=== PATIENT | male | born 1980 | race Caucasian/White ===

== ENCOUNTER 2024-09-07 11:58 | Emergency (ER) | payer BC, SELFPAY ==
[2024-09-07 12:01] VITALS: BP 168/105
[2024-09-07 12:32] LABS: Hematocrit 47.2 % (39.0-52.0); Hemoglobin 16.3 g/dL (13.0-18.0); Mean Corp Hgb Conc. 34.5 g/dL (33.0-37.0); Mean Corpuscular Volume 84.3 fL (80.0-94.0); Nucleated Red Blood Cells % 0 % (-); Platelet Count 239 10^3/uL (130-400); Red Cell Dist. Width 12.1 % (11.5-14.5)
[2024-09-07 12:56] LABS: ALT (SGPT) 27 U/L (0-50); AST (SGOT) 21 U/L (17-59); Albumin 4.8 g/dl (3.5-5.0); Alkaline Phosphatase 50 U/L (38-126); Blood Urea Nitrogen 16 mg/dl (9-20); Calcium 9.7 mg/dl (8.4-10.2); Carbon Dioxide 25 mmol/L (22-30); Chloride 106 mmol/L (98-107); Glucose 110 mg/dl (70-99); Potassium 4.5 mmol/L (3.5-5.1); Sodium 138 mmol/L (135-145); Total Protein 7.7 g/dl (6.3-8.2); eGFR > 60.00
--- NOTE | 2024-09-07 14:19 | ED.SKININJ ---
HPI-Injury
General
Chief Complaint: Skin Problem
Source: patient
Exam Limitations: none
Time Seen by Provider: 09/07/24 14:02
History of Present Illness-Injury
Initial Injury comments:
44-year-old male presents with itchy rash it is getting worse over the right arm. He notes increasing redness around the itchy rash spreading up his elbow. He denies fevers nausea chills sweats difficulty breathing. He initially was treating this
for the past week with anti-itch remedies for poison esperanza however he is concerned with increasing redness. He is a [id number]-uixemynjy diabetic.
Past History
Past History
ED Past Medical History: NIDDM (diet controlled), Psychiatric (depression) and Other ( heroin abuse)
ED Past Surgical History: None
Social History
Tobacco: Smoker (vapes)
Alcohol: None
Drug: Narcotics (Snorts heroin)
Living: with family
Employment: Employed
Family History
Family History: Other (Noncontributory)
Phy Exam
Physical Exam
Physical Exam:
General: Well-appearing male no acute respiratory distress
HEENT: Normocephalic atraumatic
Skin: Pruritic slightly raised rash over the right volar forearm draining a yellow fluid. There is erythema noted to the medial right elbow without underlying fluctuance or induration. He has good range of motion to the wrist and elbow
Course
Orders/Labs/Results
Orders:
Orders
09/07/24 12:18
Complete Blood Count/With Diff Urgent
Comprehensive Metabolic Panel Urgent
Lactic Acid Urgent
Wound Culture [Wound/Abscess/Other Culture] Urgent
MARCIA Source: Arm
Specimen Description: Right
Date Specimen was Collected: 09/07/24
Time Specimen was Collected: 12:06
Abnormal Lab Results
09/07/24
12:18
Glucose 110 H mg/dl
(70-99)
09/07/24 12:18
09/07/24 12:18
Vital Signs
Initial and Last Documented VS:
Initial Vital Signs
Temp Pulse Resp BP Pulse Ox
98.8 F 90 20 168/105 99
09/07/24 12:01 09/07/24 12:01 09/07/24 12:01 09/07/24 12:01 09/07/24 12:01
Last Documented Vital Signs
Temp Pulse Resp BP Pulse Ox
98.8 F 90 20 168/105 99
09/07/24 12:01 09/07/24 12:01 09/07/24 12:01 09/07/24 12:01 09/07/24 14:22
MDM/Problems Addressed
Differential Diagnosis Includes:
Itchy rash with erythema surrounding the rash. Rash is likely contact dermatitis from poison esper[place]. In the diabetic patient with surrounding erythema concern for possible developing cellulitis. Will recommend continued antihistamines. He is
nontoxic with stable vital signs and afebrile. Labs were drawn through triage with a normal white count. Will add prednisone but cover with doxycycline for the potential of an early cellulitis. No indication for admission. Stable for discharge
*Pulse Oximetry
SaO2: 99
Oxygen Mode of Delivery: Room air
Patient hypoxic: no
*Critical Care Note
Total Time (30-74mins, 75-104mins- exclusive of procedures): Not Applicable
ED Attending Note
-
Portions of this chart may have been created with voice recognition software.� Occasional wrong word or��sound alike� substitutions may have occurred due to the inherent limitations of voice recognition software.
Discharge Plan
Departure
Patient Disposition: Home (Routine Discharge)
Date of Disposition: 09/07/24
Time of Disposition: 14:24
Patient with high blood pressure during this ER visit?: No
Discharge Problem:
Contact dermatitis, Cellulitis
Instructions: Cellulitis (Skin Infection), Adult (DC)
Prescriptions:
New
prednisone 20 mg tablet
40 mg PO DAILY 5 Days Qty: 10 0RF
doxycycline hyclate 100 mg capsule
100 mg PO BID Qty: 14 0RF
Activity Restrictions/Additional Instructions:
You you may take Benadryl for itch. Take prednisone as directed. Use antibiotic as directed. Return here if worse otherwise follow-up with your doctor
Interventions
Interventions:
*General Assessment Last Done: 09/07/24 12:01
Discharge Date and Time
Print Language: WOLOF
[2024-09-07 14:34] VITALS: BMI 40.6
[2024-09-07 14:36] VITALS: BP 151/84
== END 2024-09-07 14:46 | disposition home or self-care (01) ==
LOC: EMR 11:58
PROVIDERS: Student in an Organized Health Care Education/Training Program; EMERGENCY PHYSICIAN Emergency Medicine
DX: L25.9 Unspecified contact dermatitis, unspecified cause (principal); L03.113 Cellulitis of right upper limb; E11.9 Type 2 diabetes mellitus without complications; F32.A Depression, unspecified; F17.290 Nicotine dependence, other tobacco product, uncomplicated
CPT/HCPCS: 99283; 80053; 83605; 85025; 87070; 87205